=== PATIENT | female | born 1985 | race Caucasian/White ===

== ENCOUNTER 2018-07-26 13:18 | Inpatient (IN) | payer MEDICAID ==
[2018-07-26] MEDS ORDERED: ACETAMINOPHEN 325 MG TAB PO (15:30)
[2018-07-26] MEDS: LACTATED RINGER'S 1,000 ML IV (16:08)
[2018-07-27] MEDS: LACTATED RINGER'S 1,000 ML IV ×3 (00:06→17:27)
== END 2018-07-27 19:05 | disposition home or self-care (01) | DRG 998 ==
LOC: OBT 13:18 → L-D 13:18 → OBT 15:00 → L-D 15:00 → PP1 21:36
DX: O76 Abnormality in fetal heart rate and rhythm complicating labor and delivery (principal); Z3A.30 30 weeks gestation of pregnancy
CPT/HCPCS: 76818

== ENCOUNTER 2018-07-30 10:51 | Outpatient (CLI) | payer MEDICAID | END 2018-07-30 12:50 | disposition home or self-care (01) | LOC: OBT 10:51 → L-D 10:51 → OBT 12:50 | DX: O36.8330 Maternal care for abnormalities of the fetal heart rate or rhythm, third trimester, not applicable or unspecified (principal); Z3A.31 31 weeks gestation of pregnancy | CPT/HCPCS: 76818 ==

== ENCOUNTER 2018-09-16 12:33 | Inpatient (IN) | payer MEDICAID ==
[2018-09-16] MEDS: LACTATED RINGER'S 1,000 ML IV ×3 (13:08→22:05)
[2018-09-16 13:42] LABS: RUPTURE FETAL MEMBRANES NEGATIVE (NEGATIVE)
[2018-09-16 17:37] LABS: ADD MAN DIFF? NO
[2018-09-16 17:39] LABS: ABNORMAL IP MESSAGE 1; BASOPHILS % 0.4 % (0.0-2.0); EOSINOPHILS # 0.1 10^3/ul (0.0-0.5); EOSINOPHILS % 0.7 % (0.0-7.0); HEMATOCRIT 29.8 % (37.0-47.0); HEMOGLOBIN 8.7 g/dl (12.0-16.0); LYMPHOCYTES # 1.9 10^3/ul (0.8-2.9); LYMPHOCYTES % 18.9 % (15.0-51.0); MEAN CORPUSCULAR HEMOGLOBIN 22.7 pg (29.0-33.0); MEAN CORPUSCULAR HGB CONC 29.2 g/dl (32.0-37.0); MEAN CORPUSCULAR VOLUME 77.6 fl (82.0-101.0); MEAN PLATELET VOLUME 11.6 fl (7.4-10.4); MONOCYTE # 0.4 10^3/ul (0.3-0.9); MONOCYTES % 4.4 % (0.0-11.0); NEUTROPHIL # 7.1 10^3/ul (1.6-7.5); NEUTROPHILS % 71.6 % (39.0-77.0); NUCLEATED RED BLOOD CELLS% 0.2 /100WBC (0.0-0.0); PLATELET COUNT 185 10^3/UL (140-415); POSITIVE DIFF @See below; RED BLOOD COUNT 3.84 10^6/ul (4.20-5.40); RED CELL DISTRIBUTION WIDTH 24.4 % (11.5-14.5)
[2018-09-16 18:02] LABS: INR 0.99; PROTIME 13.2 Sec (11.9-14.9)
[2018-09-16 18:03] LABS: PARTIAL THROMBOPLASTIN TIME 26.2 Sec (23.0-35.0)
[2018-09-17] MEDS: LACTATED RINGER'S 1,000 ML IV ×3 (06:01→22:43)
[2018-09-17] MEDS: PRENATAL VITAMIN PO (09:11)
[2018-09-17 18:53] LABS: RAPID PLASMA REAGIN NONREACTIVE (NR)
[2018-09-17] MEDS ORDERED: MAGNESIUM HYDROXIDE 30ML CUP PO (19:30)
[2018-09-17] MEDS ORDERED: BISACODYL 10 MG SUPP PR (19:30)
[2018-09-17] MEDS ORDERED: LIDOCAINE 1% (MPF) 30 ML INJ INJ (21:00)
[2018-09-17] MEDS ORDERED: MISOPROSTOL 200 MCG TAB PR (21:00)
[2018-09-17] MEDS ORDERED: OXYTOCIN 30 UNITS/LR 500 ML IV ×2 (21:00)
[2018-09-17] MEDS ORDERED: IBUPROFEN 600 MG TAB PO (21:00)
[2018-09-17] MEDS ORDERED: OXYCODONE/ACETAMINOPHEN (5/325) TAB PO (21:00)
[2018-09-17] MEDS ORDERED: METHYLERGONOVINE 0.2 MG INJ IM (21:00)
[2018-09-17] MEDS ORDERED: BUTORPHANOL 2 MG INJ IV (21:00)
[2018-09-17] MEDS ORDERED: CARBOPROST 250 MCG INJ IM (21:00)
[2018-09-17] MEDS: OXYTOCIN 30 UNITS/LR 500 ML IV (22:45)
[2018-09-17 23:29] LABS: HEPATITIS B SURFACE ANTIGEN NEGATIVE (NEGATIVE)
[2018-09-18] MEDS: LACTATED RINGER'S 1,000 ML IV ×2 (07:18→15:36)
[2018-09-18] MEDS: OXYTOCIN 30 UNITS/LR 500 ML IV (17:00)
[2018-09-18] MEDS: DEXTROSE 5%-LR 1,000 ML IV (17:41)
[2018-09-18] MEDS: LACTATED RINGER'S 1,000 ML IV* (17:41)
[2018-09-18] MEDS ORDERED: DIPHENHYDRAMINE 50 MG INJ IV (18:00)
[2018-09-18] MEDS ORDERED: DIBUCAINE 1% 30 GM OINT TOP (18:00)
[2018-09-18] MEDS ORDERED: CARBOPROST 250 MCG INJ IM (18:00)
[2018-09-18] MEDS ORDERED: MISOPROSTOL 200 MCG TAB PR (18:00)
[2018-09-18] MEDS ORDERED: ZOLPIDEM 5 MG TAB PO (18:00)
[2018-09-18] MEDS ORDERED: OXYTOCIN 30 UNITS/LR 500 ML IV (18:00)
[2018-09-18] MEDS ORDERED: METHYLERGONOVINE 0.2 MG INJ IM (18:00)
[2018-09-18] MEDS ORDERED: ONDANSETRON 4 MG INJ IV (18:00)
[2018-09-18] MEDS ORDERED: ACETAMINOPHEN 325 MG TAB PO (18:00)
[2018-09-18] MEDS ORDERED: OXYCODONE/ASPIRIN (4.88/325) TAB PO (18:00)
[2018-09-18] MEDS: IBUPROFEN 600 MG TAB PO (18:45)
[2018-09-18] MEDS: WITCH HAZEL/GLYCERIN PAD PR (18:46)
[2018-09-18] MEDS: BENZOCAINE 20% 56 ML SPRAY TOP (18:46)
[2018-09-18] MEDS: LANOLIN HPA 1 PKT TOP (22:02)
[2018-09-19] MEDS: IBUPROFEN 600 MG TAB PO ×5 (00:33→23:59)
[2018-09-19] MEDS: DEXTROSE 5%-LR 1,000 ML IV (01:41)
[2018-09-19] MEDS: LACTATED RINGER'S 1,000 ML IV* (01:41)
[2018-09-19 07:25] LABS: ADD MAN DIFF? NO
[2018-09-19 07:30] LABS: WHITE BLOOD COUNT 8.8 10^3/ul (4.8-10.8)
[2018-09-19 07:30] LABS: ABNORMAL IP MESSAGE 1; BASOPHILS % 0.2 % (0.0-2.0); EOSINOPHILS % 0.3 % (0.0-7.0); HEMATOCRIT 24.3 % (37.0-47.0); HEMOGLOBIN 7.2 g/dl (12.0-16.0); LYMPHOCYTES # 2.1 10^3/ul (0.8-2.9); MEAN CORPUSCULAR HEMOGLOBIN 23.4 pg (29.0-33.0); MEAN CORPUSCULAR HGB CONC 29.6 g/dl (32.0-37.0); MEAN CORPUSCULAR VOLUME 78.9 fl (82.0-101.0); MEAN PLATELET VOLUME 11.5 fl (7.4-10.4); MONOCYTE # 0.7 10^3/ul (0.3-0.9); MONOCYTES % 7.7 % (0.0-11.0); NEUTROPHIL # 5.9 10^3/ul (1.6-7.5); NEUTROPHILS % 66.7 % (39.0-77.0); PLATELET COUNT 145 10^3/UL (140-415); RED BLOOD COUNT 3.08 10^6/ul (4.20-5.40); RED CELL DISTRIBUTION WIDTH 26.4 % (11.5-14.5)
[2018-09-19 07:34] LABS: POSITIVE DIFF @See below
[2018-09-19] MEDS: SENNA/DOCUSATE NA (8.6MG/50MG) TAB PO ×2 (09:08→21:39)
[2018-09-19] MEDS: NACL 0.9% 3 ML SYG IV (09:09)
[2018-09-20] MEDS: IBUPROFEN 600 MG TAB PO ×2 (05:44→11:18)
[2018-09-20] MEDS: MEASLES,MUMPS,RUBELLA VACCINE INJ SC* (09:05)
[2018-09-20] MEDS: DIPHTH/TET/ACEL PERTUSS (ADULT) 0.5 ML VIAL IM* (11:19)
== END 2018-09-20 15:41 | disposition home or self-care (01) | DRG 807 ==
LOC: OBT 12:33 → L-D 09-17 20:06 → PP1 09-18 17:57 → L-D 12:33 → OBT 14:49 → L-D 14:30
PROVIDERS: Obstetrics & Gynecology
PROC: 10E0XZZ Delivery of Products of Conception, External Approach (ICD-10-PCS; principal; 2018-09-18)
PROC: 3E033VJ Introduction of Other Hormone into Peripheral Vein, Percutaneous Approach (ICD-10-PCS; 2018-09-18)
DX: O41.03X0 Oligohydramnios, third trimester, not applicable or unspecified (principal); Z37.0 Single live birth; O99.02 Anemia complicating childbirth; Z3A.38 38 weeks gestation of pregnancy
CPT/HCPCS: 76818; 84112; 85025; 85610; 85730; 86592; 86850; 86900; 86901; 87340; 90686; 90715; 96360; 99464